=== PATIENT | female | born 1975 | race Caucasian/White ===

== ENCOUNTER 2024-08-05 16:50 | Observation (INO) | payer OTHER, MEDICAID, SELFPAY ==
[2024-08-05] VITALS (27 sets, daily range): BP systolic 155–231; BP diastolic 96–147; PULSE 79–109; RESP 13–27; TEMP 36.3–36.8; O2SAT 92–98; BMI 39.9
--- NOTE | 2024-08-05 | DI.ECHO.S_ITS ---
[facility] : : [address] : : [place] : : [address] : : Phone: [phone] Echocardiogram Report + + :Name: MERA FLORES Study Date: 08/06/2024 Height: 61 in : :[facility] ReadingLocation: Weight: 221 lb : : Gender: Female BSA: 2.0 m2 : :: 1975 Age: 49 yrs BP: 151/82 mmHg: :Reason For Study: NEW HEART FAILURE : :Ordering Physician: CHRISTIAN, : :EDINSON HOWARD Performed By: Rowena Benavidez : :Referring: EDINSON GONZALES MD : + + Interpretation Summary There is mild concentric left ventricular hypertrophy. Left ventricular ejection fraction is estimated to be 35 +/- 5%. There is moderate global hypokinesis of the left ventricle. There is no significant valvular heart disease. Procedure: A two-dimensional transthoracic echocardiogram with color flow and Doppler was performed. The study quality was technically adequate. There is no prior echocardiogram noted for this patient. The patient was in sinus rhythm with heart rates between 83-91 bpm during the exam. Left Ventricle: The left ventricle is normal in size. There is mild concentric left ventricular hypertrophy. Left ventricular ejection fraction is estimated to be 35 +/- 5%. There is moderate global hypokinesis of the left ventricle. Right Ventricle: The right ventricle is borderline dilated. The right ventricular systolic function is normal. Atria: The left atrial size is normal. Right atrial size is normal. There is no Doppler evidence for an interatrial shunt. Mitral Valve: The mitral valve leaflets appear mildly thickened, but open well. The mitral valve mean gradient is 3.0 mmHg. There is trace mitral regurgitation. Aortic Valve: The aortic valve is trileaflet. The aortic valve opens well. There is no aortic valve stenosis. No aortic regurgitation is present. Tricuspid Valve: The tricuspid valve is normal in structure and function. There is mild tricuspid regurgitation. Pulmonary artery pressures cannot be estimated because of the lack of a measurable TR jet velocity. Pulmonic Valve: The pulmonic valve leaflets are thin and pliable; valve motion is normal. There is mild pulmonic regurgitation. Great Vessels: The aortic root is normal size. The dimensions of the ascending aorta are normal. The IVC is of normal diameter and collapses greater than 50% with a sniff. This suggests a low right atrial pressure of 3 mm Hg. Pericardium/ Pleura There is no pericardial effusion. There is no pleural effusion. MMode/2D Measurements & Calculations LVIDd: 5.3 cm LVOT diam: 2.1 cm LVIDs: 4.0 cm Ao root diam: 3.0 cm FS: 25.6 % asc Aorta Diam: 3.3 cm IVSd: 1.4 cm Ao Arch Diam (Prox Trans): 3.0 cm LVPWd: 1.4 cm LV henson. diameter/BSA (cm/m^2): 2.7 LV sys. diameter/BSA (cm/m^2): 2.0 LA A2 area: 17.4 cm2 RA long axis: 5.1 cm LA A4 area: 17.5 cm2 RA area: 14.2 cm2 LA length (vol): 5.4 cm RA vol: 33.6 ml LA vol: 47.4 ml RA : 17.0 ml/m2 LA vol index: 24.1 ml/m2 IVC diam: 1.0 cm RVD1 (basal): 4.2 cm RVD2 (mid): 3.1 cm TAPSE: 1.7 cm Doppler Measurements & Calculations Ao V2 max: 176.8 cm/sec LVOT Max Garcia: 87.0 cm/sec Ao V2 mean: 119.3 cm/sec LV V1 max P.0 mmHg Ao max P.5 mmHg LV V1 VTI: 15.3 cm Ao mean P.5 mmHg NAV(I,D): 2.0 cm2 Ao V2 VTI: 27.9 cm NAV(V,D): 1.8 cm2 sev ratio: 0.55 NAV indexed to BSA (cm^2/m^2): 0.99 MV E max garcia: 81.5 cm/sec PA V2 max: 87.2 cm/sec MV A max garcia: 104.9 cm/sec PA V2 mean: 59.6 cm/sec MV E/A: 0.78 PA mean P.6 mmHg Med Peak E' Garcia: 4.1 cm/sec PA pr(Accel): 39.6 mmHg E/E' med: 19.8 Lat Peak E' Garcia: 4.3 cm/sec E/E' lat: 19.0 E/e' average: 19.4 MV dec time: 0.16 sec MVA(VTI): 1.9 cm2 MV V2 mean: 82.1 cm/sec SV(LVOT): 54.6 ml MV mean P.0 mmHg MV V2 VTI: 28.8 cm Reading Physician:03:29 PM
--- NOTE | 2024-08-05 17:06 | DI.RAD.S_ITS ---
PROCEDURE: XR CHEST 1V INDICATIONS: Shortness of breath TECHNIQUE: One view of the chest was acquired. COMPARISON: None. FINDINGS: Surgical changes and devices: None. Lungs and pleura: Low lung volumes. No dense consolidation or pleural effusion Mediastinum: Moderate cardiomegaly Bones and chest wall: Unremarkable IMPRESSION: Limited single view radiograph without pulmonary parenchymal consolidation or pleural effusion. Moderate cardiomegaly. Dictated by: Jose L Viveros M.D. on 08/05/2024 at 17:29 Approved by: Jose L Viveros M.D. on 08/05/2024 at 17:30
--- NOTE | 2024-08-05 17:28 | EKG_ITS ---
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
[2024-08-05 17:44] LABS: Add Manual Diff / Slide Review NO; Basophils Absolute Auto 200 /uL (0-100); Basophils Percent Auto 1.5 % (0-2); Eosinophils Absolute Auto 200 /uL (0-450); Eosinophils Percent Auto 1.4 % (2-4); Hematocrit 38.3 % (36-46); Hemoglobin 12.4 g/dL (12.0-16.0); Lymphocytes Absolute Auto 2700 /uL (1100-4500); Lymphocytes Percent Auto 22.6 % (25-40); Mean Corpuscular HGB Conc 32.3 % (30-36); Mean Corpuscular Hemoglobin 27.1 PG (26-34); Mean Corpuscular Volume 83.8 fL (80-100); Monocytes Absolute Auto 700 /uL (0-900); Monocytes Percent Auto 5.6 % (3-14); Neutrophils Absolute Auto 8300 /uL (1500-7000); Neutrophils Percent Auto 68.9 % (50-75); Platelet Count 422 X10^3/uL (150-400); Red Blood Cell Count 4.57 X10^6/uL (4.0-5.2); Red Cell Distribution Width 16.7 % (11.6-14.8)
[2024-08-05 17:50] LABS: Prothrombin Time 11.1 SECONDS (9.4-12.5)
[2024-08-05 17:55] LABS: Alanine Aminotransferase 18 IU/L (<35); Albumin 3.8 g/dL (3.5-5.0); Albumin Globulin Ratio 1.2 (1.0-2.8); Alkaline Phosphatase 72 U/L (38-126); Aspartate Aminotransferase 24 IU/L (14-36); BUN Creatinine Ratio 28.6 (6-22); Bilirubin Total 0.4 mg/dL (0.2-1.3); Blood Urea Nitrogen 20 mg/dL (7-17); Calcium 9.2 mg/dL (8.4-10.2); Carbon Dioxide 25 mmol/L (22-32); Chloride 106 mmol/L (98-107); Estimated Glomerular Filt Rate > 60 mL/min (>60); Globulin 3.2 g/dL (1.7-4.1); Glucose 92 mg/dL (70-100); HEMOLYSIS 31 (0-50); Potassium 4.1 mmol/L (3.4-5.1); Sodium 137 mmol/L (137-145)
[2024-08-05] MEDS: ASPIRIN 81 MG CHEW TAB 324 MG PO (17:58)
[2024-08-05] MEDS: NITROGLYCERIN OINT 1 INCH/GM OINT...G. TOP (17:59)
[2024-08-05] MEDS: LABETALOL 20 MG/4 ML SYRINGE IV (18:01)
[2024-08-05 18:06] LABS: NT-proBNP (BNP-Adult 18+) 4550 pg/mL (<125)
--- NOTE | 2024-08-05 18:37 | PC.NURSE ---
Pt reports I'm really hot and has increased work of breathing with some pursued lip breathing. Provider Gigi made aware of patient presentation and vitals prior to and after administration of labetalol and nitro paste. Per darrell Yu verbal order to remove nitro paste and get repeat EKG. Nitro paste removed and EKG being performed at this time.
--- NOTE | 2024-08-05 18:38 | ED_ITS ---
HPI - General Adult General Chief complaint: Shortness of Breath/Dyspnea Stated complaint: hypotensive, other issues Time Seen by Provider: 08/05/24 17:23 Source: patient and other Mode of arrival: Ambulatory History of Present Illness HPI narrative: 49-year-old female felt short of breath this afternoon, denies chest pain, denies headache, denies weakness to face arm or leg. She has history of polysubstance abuse, prior methamphetamine and cocaine use, last use she says about 1 year ago. She does not recall having any diagnosis of heart failure. She does not recall having blood pressure problems. She has not feel like she is having any shaking or sweating or withdrawal from any substance. She denies alcohol use recent. She denies any problems with her heart vessels, no coronary vessel interventions. Denies use of blood thinner medications. No history of blood clots to legs or lungs, no leg pain or swelling symptoms. Related Data Home Medications Medication Instructions Recorded Confirmed No Known Home Medications 08/05/24 08/05/24 Allergies Allergy/AdvReac Type Severity Reaction Status Date / Time Iodinated Contrast Media AdvReac Hives Verified 08/05/24 17:00 Review of Systems Review of Systems Narrative: see HPI Patient History Social History household members: friend(s) Smoking Status: Current every day smoker alcohol intake: never Smoking Status: Current every day smoker tobacco type: vaping Substance Use Type: does not use and former substance user Exam Narrative Exam Narrative: GENERAL: Well-developed patient, in mild distress. HEAD: Atraumatic. Normocephalic. EYES: Pupils equal round and reactive. Extraocular motions intact. No scleral icterus. No injection or drainage. ENT: Nose without bleeding, purulent drainage. Throat without erythema, tonsillar hypertrophy or exudate. Airway patent. NECK: Trachea midline. Non tender CARDIOVASCULAR: Regular rate and rhythm without murmurs, gallops, or rubs. RESPIRATORY: Clear to auscultation. Breath sounds equal bilaterally. No wheezes, rales, or rhonchi. GASTROINTESTINAL: Abdomen soft, non-tender, nondistended. EXTREMITIES: No edema or joint tenderness. BACK: Nontender without deformity or crepitance. No flank tenderness. NEURO: AOx3. Motor functions grossly nonfocal SKIN: No rash or erythema of visible areas Initial Vital Signs Initial Vital Signs: Vital Signs Temperature 97.3 F L 08/05/24 17:00 Pulse Rate 102 H 08/05/24 17:00 Respiratory Rate 20 08/05/24 17:00 Blood Pressure 218/147 H 08/05/24 17:00 Pulse Oximetry 98 08/05/24 17:00 Oxygen Delivery Method Room Air 08/05/24 17:00 Course Orders Ordered: ED Orders 08/05/24 17:06 XR chest 1V Stat EKG-12 Lead Stat RT Consult Eval and Treat NOW 08/05/24 17:30 Complete Blood Count AUTO DIFF Stat Comprehensive Metabolic Panel Stat Lactate (Lactic Acid) Stat NT-proBNP (BNP-Adult 18+) Stat Prothrombin Time INR Stat Troponin I Stat 08/05/24 17:47 Consult to MINING ENGINEER - Engine Repairer Service Stat 08/05/24 18:36 EKG-12 Lead Stat 08/05/24 18:57 CT angio chest abdomen pelvis Stat 08/05/24 20:48 Education, smoking cessation ONGOING Acetaminophen (Acetaminophen 325 Mg Tablet) 650 mg PO Q6H PRN PRN Reason: Fever/Mild Pain (1-3) Enoxaparin Sodium (Enoxaparin 40 Mg/0.4 Ml Syringe) 40 mg SUBCUT DAILY LILIANA Famotidine (Famotidine 20 Mg/2 Ml Vial) 20 mg IV NOW LILIANA Furosemide (Furosemide 40 Mg/4 Ml Vial) 40 mg IV Q8H LILIANA Labetalol HCl (Labetalol 20 Mg/4 Ml Syringe) 10 mg IV Q4HR PRN PRN Reason: Heart Rate- High Lorazepam (Lorazepam 2 Mg/Ml Inj) 1 mg IV Q6HR PRN PRN Reason: Anxiety Naloxone HCl (Naloxone 0.4 Mg/Ml Vial) 0.2 mg IV Q2MIN PRN PRN Reason: Opiate Reversal Ondansetron HCl (Ondansetron 4 Mg/2 Ml Inj) 4 mg IV Q8HR PRN PRN Reason: Nausea And Vomiting Discontinued Medications Aspirin (Aspirin 81 Mg Chew Tab) 324 mg PO NOW ONE Stop: 08/05/24 17:56 Last Admin: 08/05/24 17:58 Dose: 324 mg Documented By: SB Diphenhydramine HCl (Diphenhydramine 50 Mg/Ml Vial) 50 mg IV NOW ONE Stop: 08/05/24 19:17 Last Admin: 08/05/24 19:32 Dose: 50 mg Documented By: AMV Furosemide (Furosemide 40 Mg/4 Ml Vial) 40 mg IV NOW ONE Stop: 08/05/24 18:41 Last Admin: 08/05/24 18:49 Dose: 40 mg Documented By: AMV Labetalol HCl (Labetalol 20 Mg/4 Ml Syringe) 20 mg IV NOW ONE Stop: 08/05/24 17:54 Last Admin: 08/05/24 18:01 Dose: 20 mg Documented By: SB Methylprednisolone (Methylprednisolone 125 Mg/2 Ml Vial) 125 mg IV NOW ONE Stop: 08/05/24 19:17 Last Admin: 08/05/24 19:32 Dose: 125 mg Documented By: AMV Nitroglycerin (Nitroglycerin Oint 1 Inch/Gm Oint...G.) 1 inch TOP NOW ONE Stop: 08/05/24 17:54 Last Admin: 08/05/24 17:59 Dose: 1 inch Documented By: SB Vital Signs Vital signs: Vital Signs - 8 hr 08/05/24 17:00 08/05/24 17:21 08/05/24 17:22 Temperature 97.3 F L Pulse Rate 102 H 104 H 102 H Respiratory Rate 20 19 17 Blood Pressure 218/147 H Pulse Oximetry 98 Oxygen Delivery Method Room Air 08/05/24 17:22 08/05/24 17:30 08/05/24 17:36 Temperature Pulse Rate 109 H 101 H Respiratory Rate 24 23 Blood Pressure 212/122 H Pulse Oximetry 96 Oxygen Delivery Method 08/05/24 17:36 08/05/24 17:46 08/05/24 17:46 Temperature Pulse Rate 100 H Respiratory Rate 27 H Blood Pressure 231/131 H 210/133 H Pulse Oximetry 97 Oxygen Delivery Method 08/05/24 17:59 08/05/24 18:00 08/05/24 18:01 Temperature Pulse Rate 102 H 102 H 103 H Respiratory Rate 25 H Blood Pressure 210/133 H 210/133 H Pulse Oximetry 97 Oxygen Delivery Method 08/05/24 18:09 08/05/24 18:09 08/05/24 18:13 Temperature Pulse Rate 86 Respiratory Rate 16 Blood Pressure 187/106 H 182/110 H Pulse Oximetry 97 Oxygen Delivery Method 08/05/24 18:13 08/05/24 18:15 08/05/24 18:15 Temperature Pulse Rate 80 79 Respiratory Rate 23 13 Blood Pressure 182/104 H Pulse Oximetry 97 97 Oxygen Delivery Method 08/05/24 18:30 08/05/24 18:30 08/05/24 18:30 Temperature 98.2 F Pulse Rate 79 Respiratory Rate 17 Blood Pressure 167/99 H Pulse Oximetry 96 Oxygen Delivery Method 08/05/24 18:32 08/05/24 18:37 08/05/24 18:37 Temperature Pulse Rate 79 80 Respiratory Rate 17 Blood Pressure 167/99 H 176/101 H Pulse Oximetry 96 Oxygen Delivery Method 08/05/24 18:45 08/05/24 18:45 08/05/24 19:00 Temperature Pulse Rate 81 Respiratory Rate 16 Blood Pressure 168/96 H 162/107 H Pulse Oximetry 96 Oxygen Delivery Method Room Air 08/05/24 19:00 08/05/24 19:22 08/05/24 19:22 Temperature Pulse Rate 82 81 Respiratory Rate 21 15 Blood Pressure 171/109 H Pulse Oximetry 96 96 Oxygen Delivery Method 08/05/24 19:30 08/05/24 19:30 08/05/24 19:56 Temperature Pulse Rate 79 85 Respiratory Rate 24 26 H Blood Pressure 181/113 H Pulse Oximetry 94 98 Oxygen Delivery Method Room Air 08/05/24 19:56 08/05/24 20:00 08/05/24 20:00 Temperature Pulse Rate 83 Respiratory Rate Blood Pressure 175/121 H 174/119 H Pulse Oximetry 95 Oxygen Delivery Method 08/05/24 20:13 08/05/24 20:13 08/05/24 20:30 Temperature Pulse Rate 85 81 Respiratory Rate Blood Pressure 163/109 H Pulse Oximetry 97 98 Oxygen Delivery Method 08/05/24 20:30 Temperature Pulse Rate Respiratory Rate 20 Blood Pressure 155/116 H Pulse Oximetry Oxygen Delivery Method Medical Decision Making Lab Data Lab results reviewed: Yes I reviewed the patient's lab results. 08/05/24 17:30 08/05/24 17:30 Labs: Lab Results 08/05/24 Range/Units 17:30 WBC 12.0 H (4.5-11.0) X10^3/uL RBC 4.57 (4.0-5.2) X10^6/uL Hgb 12.4 (12.0-16.0) g/dL Hct 38.3 (36-46) % MCV 83.8 (80-100) fL MCH 27.1 (26-34) PG MCHC 32.3 (30-36) % RDW 16.7 H (11.6-14.8) % Plt Count 422 H (150-400) X10^3/uL Neut % (Auto) 68.9 (50-75) % Lymph % (Auto) 22.6 L (25-40) % [place] % (Auto) 5.6 (3-14) % Eos % (Auto) 1.4 L (2-4) % Baso % (Auto) 1.5 (0-2) % Neut # (Auto) 8300 H (9770-2402) /uL Lymph # (Auto) 2700 (2287-3512) /uL [place] # (Auto) 700 (0-900) /uL Eos # (Auto) 200 (0-450) /uL Baso # (Auto) 200 H (0-100) /uL PT 11.1 (9.4-12.5) SECONDS INR 1.0 (0.9-1.3) Sodium 137 (137-145) mmol/L Potassium 4.1 (3.4-5.1) mmol/L Chloride 106 (98-107) mmol/L Carbon Dioxide 25 (22-32) mmol/L BUN 20 H (7-17) mg/dL Creatinine 0.70 (0.52-1.04) mg/dL Estimated GFR > 60 (>60) mL/min BUN/Creatinine Ratio 28.6 H (6-22) Glucose 92 (70-100) mg/dL Lactate 1.0 (0.7-2.1) mmol/L Calcium 9.2 (8.4-10.2) mg/dL Total Bilirubin 0.4 (0.2-1.3) mg/dL AST 24 (14-36) IU/L ALT 18 (<35) IU/L Alkaline Phosphatase 72 (38-126) U/L Troponin I 0.030 (0.01-0.034) ng/mL NT-Pro-B Natriuret Pep 4550 H (<125) pg/mL Total Protein 7.0 (6.3-8.2) g/dL Albumin 3.8 (3.5-5.0) g/dL Globulin 3.2 (1.7-4.1) g/dL Albumin/Globulin Ratio 1.2 (1.0-2.8) Point of Care Testing Glucose POC 99 Point of care testing: Point of Care Testing Glucose POC 99 Imaging Data Chest x-ray: Radiologist's Impression: [address] [address] XRay Report Signed Patient: Carole Marie MR#: [id number] : 1975 Acct:[id number] Age/Sex: 49 / F Date of Service: 08/05/24 Loc: ED Accession Number: [id number] Procedure: XR chest 1V Ordering Provider: Graciela Mosley MD PROCEDURE: XR CHEST 1V INDICATIONS: Shortness of breath TECHNIQUE: One view of the chest was acquired. COMPARISON: None. FINDINGS: Surgical changes and devices: None. Lungs and pleura: Low lung volumes. No dense consolidation or pleural effusion Mediastinum: Moderate cardiomegaly Bones and chest wall: Unremarkable IMPRESSION: Limited single view radiograph without pulmonary parenchymal consolidation or pleural effusion. Moderate cardiomegaly. Dictated by: Jose L Viveros M.D. on 08/05/2024 at 17:29 Approved by: Jose L Viveros M.D. on 08/05/2024 at 17:30 CT angiogram chest abdomen and pelvis: Radiologist's Impression: [address] [address] [address] Scan Report Signed Patient: Carole Marie MR#: [id number] : 1975 Acct:[id number] Age/Sex: 49 / F Date of Service: 08/05/24 Loc: ED Accession Number: [id number] Procedure: CT angio chest abdomen pelvis Ordering Provider: Kirt Yu MD PROCEDURE: CT ANGIO CHEST ABDOMEN PELVIS INDICATIONS: dissection protocol TECHNIQUE: Precontrast 5 mm thick sections acquired from the lung apices to the iliac crests. After the administration of intravenous contrast, 2.5 mm thick sections again acquired from the lung apices to the iliac crests. Maximum intensity projection (MIP) oblique sagittal and coronal reformats were then acquired. For radiation dose reduction, the following was used: automated exposure control. COMPARISON: None. FINDINGS: Image quality: Diagnostic. AORTA: No aortic aneurysm. No acute aortic syndrome. CHEST: Lower Neck: No enlarged lymph nodes. Thyroid: No thyroid nodules which require sonographic evaluation. Axillae: No enlarged lymph nodes. Chest Wall: Unremarkable. Lungs and Pleura: Small pleural effusions. Smooth interstitial thickening. Bronchial thickening. Heart: Heart size is enlarged. No pericardial effusion. Thoracic Vessels: Pulmonary arteries demonstrate normal size. Mediastinum and Nanci: No enlarged lymph nodes. Esophagus: No wall thickening. Small hiatal hernia. ABDOMEN: Liver: No solid mass. Gallbladder: No radiopaque gallstones or wall thickening. Biliary ducts: No biliary dilation. Pancreas: No ductal dilation. Spleen: Size is within normal limits. Adrenal Glands: No adrenal nodules. Kidneys and Ureters: No hydronephrosis. No solid mass. No complex renal cystic lesion which requires follow up. Stomach and Bowel: Normal colonic caliber, without significant wall thickening. Peritoneum: No abnormal intraperitoneal fluid. No free air. Ventral Wall: Small umbilical hernia containing fat. Abdominal Nodes: No retroperitoneal or mesenteric adenopathy by size criteria. Vessels: Inferior vena cava is normal in size. PELVIS: Pelvic Organs: Unremarkable. Bladder: Unremarkable. Pelvic Nodes: No enlarged lymph nodes. Miscellaneous: No inguinal hernias are seen. Bones: Unremarkable. IMPRESSION: No aortic aneurysm or acute aortic syndrome. Moderate pulmonary edema and small pleural effusions. Dictated by: Sebastian Whitten M.D. on 08/05/2024 at 20:11 Approved by: Sebastian Whitten M.D. on 08/05/2024 at 20:15 ECG Data Attestation: I personally reviewed and interpreted this ECG as follows: Interpretation: 1728, Sinus tachycardia with rate 103, unifocal PVCs noted. No obvious ST segment elevation. T-wave inversion lateral leads. MN 156, QRS 90, QTC 463. 1839, numerous sinus rhythm rate 80, no obvious ST segment elevation changes. T-wave inversions again noted laterally, no ectopy on this particular study. MN 164. QRS 90. QTC 463. MDM Narrative Medical decision making narrative: 49-year-old female with history of polysubstance abuse, including methamphetamine and cocaine, reports last use 1 year ago, has shortness of breath today. And triage had markedly elevated blood pressures and seemed to be in some respiratory distress, was given IV labetalol and nitro paste. Screening EKG without obvious ischemic changes. Labs pending. Chest x-ray pending. Labs show BNP 4500, some cardiomegaly on x-ray. Blood pressure decreased with labetalol and nitro paste. Initial troponin negative, we will repeat interval troponin. CT angiogram chest abdomen and pelvis. Add UDS Patient has history of contrast allergy, she has not sure if it was from MRI or CT scanning, she is willing to proceed with CTA scanning with premedication, IV Solu-Medrol/Benadryl. IV Lasix added. Patient tolerated IV contrast well after premedication, CT angio chest abdomen and pelvis report pending CTA chest abdomen and pelvis shows normal aorta, no mention of pulmonary embolus, fluid overload pulmonary edema changes noted. Consistent with the heart failure. See radiology report. Patient with no oxygen requirement but symptoms of dyspnea, history of polysubstance abuse, no prior echocardiogram located in our system, she does not recall having an echocardiogram study. IV Lasix diuresis initiated, initially hypertensive, blood pressure improving after labetalol and diuretic and topical nitroglycerin. Consider admission, hospitalist to be consulted 2100, case discussed with hospitalist Dr. Nixon, accepts patient for admission to inpatient Critical Care Time Critical Care Time Critical Care Time: Yes Total Critical Care Time: 35 Attestation: The high probability of a clinically significant, sudden or life threatening deterioration of the [cardiopulmonary, vascular] system(s) required my full and direct attention, intervention and personal management. The aggregate critical care time was [35] minutes. This time is in addition to time spent performing reported procedures but includes the following: [x] Data Review and interpretation [x] Patient assessment and monitoring of vital signs [x] Documentation [x] Medication orders and management Discharge Plan Departure Patient Disposition: Admitted As Inpatient Clinical Impression: Shortness of breath, Congestive heart failure, Hx of substance abuse, Hypertension Admit Date/Time: 08/05/24 20:55 Admit Provider: Soto Nixon
--- NOTE | 2024-08-05 18:39 | EKG_ITS ---
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
[2024-08-05] MEDS: FUROSEMIDE 40 MG/4 ML VIAL IV (18:49)
--- NOTE | 2024-08-05 18:57 | DI.CT.S_ITS ---
PROCEDURE: CT ANGIO CHEST ABDOMEN PELVIS INDICATIONS: dissection protocol TECHNIQUE: Precontrast 5 mm thick sections acquired from the lung apices to the iliac crests. After the administration of intravenous contrast, 2.5 mm thick sections again acquired from the lung apices to the iliac crests. Maximum intensity projection (MIP) oblique sagittal and coronal reformats were then acquired. For radiation dose reduction, the following was used: automated exposure control. COMPARISON: None. FINDINGS: Image quality: Diagnostic. AORTA: No aortic aneurysm. No acute aortic syndrome. CHEST: Lower Neck: No enlarged lymph nodes. Thyroid: No thyroid nodules which require sonographic evaluation. Axillae: No enlarged lymph nodes. Chest Wall: Unremarkable. Lungs and Pleura: Small pleural effusions. Smooth interstitial thickening. Bronchial thickening. Heart: Heart size is enlarged. No pericardial effusion. Thoracic Vessels: Pulmonary arteries demonstrate normal size. Mediastinum and Nanci: No enlarged lymph nodes. Esophagus: No wall thickening. Small hiatal hernia. ABDOMEN: Liver: No solid mass. Gallbladder: No radiopaque gallstones or wall thickening. Biliary ducts: No biliary dilation. Pancreas: No ductal dilation. Spleen: Size is within normal limits. Adrenal Glands: No adrenal nodules. Kidneys and Ureters: No hydronephrosis. No solid mass. No complex renal cystic lesion which requires follow up. Stomach and Bowel: Normal colonic caliber, without significant wall thickening. Peritoneum: No abnormal intraperitoneal fluid. No free air. Ventral Wall: Small umbilical hernia containing fat. Abdominal Nodes: No retroperitoneal or mesenteric adenopathy by size criteria. Vessels: Inferior vena cava is normal in size. PELVIS: Pelvic Organs: Unremarkable. Bladder: Unremarkable. Pelvic Nodes: No enlarged lymph nodes. Miscellaneous: No inguinal hernias are seen. Bones: Unremarkable. IMPRESSION: No aortic aneurysm or acute aortic syndrome. Moderate pulmonary edema and small pleural effusions. Dictated by: Sebastian Whitten M.D. on 08/05/2024 at 20:11 Approved by: Sebastian Whitten M.D. on 08/05/2024 at 20:15
[2024-08-05] MEDS: methylPREDNISolone 125 MG/2 ML VIAL IV (19:32)
[2024-08-05] MEDS: diphenhydrAMINE 50 MG/ML VIAL IV (19:32)
--- NOTE | 2024-08-05 21:56 | PC.NURSE ---
This WOODWORKING BENCH CARPENTER is part of patient care team untill 0730 Sunday08/06/2024
--- NOTE | 2024-08-05 22:05 | PC.NURSE ---
This DOCUMENT SCANNER orientating with MICHELLE Pozo is a part of patient care until 7:30 AM
[2024-08-05 23:22] LABS: MRSA (Nasal) PCR NOT DETECTED (Not Detect)
[2024-08-06] VITALS: BP 175/105; PULSE 80; RESP 26; TEMP 37; O2SAT 96
--- NOTE | 2024-08-06 00:21 | PM.HP.1 ---
History of Present Illness History of Present Illness Chief complaint: hypotensive, other issues Narrative: 49 year old female with past medical history of polysubstance abuse including Methamphetamine and cocaine presents with shortness of breath. Per the patient's report, the patient quite abusing all of the illicit drugs about a year ago. However, over the last few days, the patient has noticed progressive shortness of breath. The patient denies any chest pain, fever, chills, coughing, nausea, vomiting or diarrhea. The patient admits to have orthopnea but denies any leg swelling. In our ER, the paitent was noted to have sign of volume overload. CXR shows pulmonary edema and BNP was 4550. Patient LEs has traced pitting edema per our ER physician. The patient SBP was in 190s. The patient was given IV lasix. WBV 12 but no clear sign of infection. The patient othewrise was saturating well on room air. Trops and EKG are negative. PFSH Social History household members: friend(s) Smoking Status: Current every day smoker alcohol intake: never Meds Home Medications and Allergies Home Medications Medication Instructions Recorded Confirmed Type No Known Home Medications 08/05/24 08/05/24 History Allergies Allergy/AdvReac Type Severity Reaction Status Date / Time Iodinated Contrast Media AdvReac Hives Verified 08/05/24 17:00 Review of Systems Review of Systems Narrative: 12 points of ROS are negative except for what was mentioned per HPI. Exam Vital Signs (past 8 hours): - 08/05/24 17:00 08/05/24 17:21 08/05/24 17:22 Temperature 97.3 F L Pulse Rate 102 H 104 H 102 H Respiratory Rate 20 19 17 Blood Pressure 218/147 H Pulse Oximetry 98 Oxygen Delivery Method Room Air Oxygen Flow Rate 08/05/24 17:22 08/05/24 17:30 08/05/24 17:36 Temperature Pulse Rate 109 H 101 H Respiratory Rate 24 23 Blood Pressure 212/122 H Pulse Oximetry 96 Oxygen Delivery Method Oxygen Flow Rate 08/05/24 17:36 08/05/24 17:46 08/05/24 17:46 Temperature Pulse Rate 100 H Respiratory Rate 27 H Blood Pressure 231/131 H 210/133 H Pulse Oximetry 97 Oxygen Delivery Method Oxygen Flow Rate 08/05/24 17:59 08/05/24 18:00 08/05/24 18:01 Temperature Pulse Rate 102 H 102 H 103 H Respiratory Rate 25 H Blood Pressure 210/133 H 210/133 H Pulse Oximetry 97 Oxygen Delivery Method Oxygen Flow Rate 08/05/24 18:09 08/05/24 18:09 08/05/24 18:13 Temperature Pulse Rate 86 Respiratory Rate 16 Blood Pressure 187/106 H 182/110 H Pulse Oximetry 97 Oxygen Delivery Method Oxygen Flow Rate 08/05/24 18:13 08/05/24 18:15 08/05/24 18:15 Temperature Pulse Rate 80 79 Respiratory Rate 23 13 Blood Pressure 182/104 H Pulse Oximetry 97 97 Oxygen Delivery Method Oxygen Flow Rate 08/05/24 18:30 08/05/24 18:30 08/05/24 18:30 Temperature 98.2 F Pulse Rate 79 Respiratory Rate 17 Blood Pressure 167/99 H Pulse Oximetry 96 Oxygen Delivery Method Oxygen Flow Rate 08/05/24 18:32 08/05/24 18:37 08/05/24 18:37 Temperature Pulse Rate 79 80 Respiratory Rate 17 Blood Pressure 167/99 H 176/101 H Pulse Oximetry 96 Oxygen Delivery Method Oxygen Flow Rate 08/05/24 18:45 08/05/24 18:45 08/05/24 19:00 Temperature Pulse Rate 81 Respiratory Rate 16 Blood Pressure 168/96 H 162/107 H Pulse Oximetry 96 Oxygen Delivery Method Room Air Oxygen Flow Rate 08/05/24 19:00 08/05/24 19:22 08/05/24 19:22 Temperature Pulse Rate 82 81 Respiratory Rate 21 15 Blood Pressure 171/109 H Pulse Oximetry 96 96 Oxygen Delivery Method Oxygen Flow Rate 08/05/24 19:30 08/05/24 19:30 08/05/24 19:56 Temperature Pulse Rate 79 85 Respiratory Rate 24 26 H Blood Pressure 181/113 H Pulse Oximetry 94 98 Oxygen Delivery Method Room Air Oxygen Flow Rate 08/05/24 19:56 08/05/24 20:00 08/05/24 20:00 Temperature Pulse Rate 83 Respiratory Rate Blood Pressure 175/121 H 174/119 H Pulse Oximetry 95 Oxygen Delivery Method Oxygen Flow Rate 08/05/24 20:13 08/05/24 20:13 08/05/24 20:30 Temperature Pulse Rate 85 81 Respiratory Rate Blood Pressure 163/109 H Pulse Oximetry 97 98 Oxygen Delivery Method Oxygen Flow Rate 08/05/24 20:30 08/05/24 21:00 08/05/24 21:00 Temperature Pulse Rate 82 Respiratory Rate 20 Blood Pressure 155/116 H 163/108 H Pulse Oximetry 96 Oxygen Delivery Method Oxygen Flow Rate 08/05/24 21:30 08/05/24 21:30 08/05/24 21:34 Temperature Pulse Rate 84 Respiratory Rate Blood Pressure 163/118 H Pulse Oximetry 96 92 Oxygen Delivery Method Nasal Cannula Oxygen Flow Rate 2 08/05/24 21:37 08/05/24 22:07 08/06/24 00:00 Temperature 98.0 F 98.6 F Pulse Rate 87 80 Respiratory Rate 20 26 H Blood Pressure 177/115 H 175/105 H Pulse Oximetry 96 96 Oxygen Delivery Method Room Air Oxygen Flow Rate 0 1 Oxygen Delivery Method Room Air Oxygen Flow Rate 1 Narrative Exam Narrative: GENERAL: The patient is not in any acute distressed. Awake and alert. HEENT: Nonicteric sclerae, PERRLA, EOMI. Oropharynx clear. Moist mucous membranes. Conjunctivae appear well perfused. HEART: Regular rate and rhythm without murmurs. traced lower extremities edema. LUNGS: Clear to auscultation bilaterally. No wheezing, crackles or rhonchi ABDOMEN: Soft, positive bowel sounds, nontender. SKIN: No rash, no excessive bruising, petechiae, or purpura. NEUROLOGIC: AxO x 3. Cranial nerves II-XII intact without motor/sensory deficit. Objective Labs 08/05/24 17:30 08/05/24 17:30 Labs: Laboratory Results - last 24 hr 08/05/24 08/05/24 17:30 22:00 WBC 12.0 H RBC 4.57 Hgb 12.4 Hct 38.3 MCV 83.8 MCH 27.1 MCHC 32.3 RDW 16.7 H Plt Count 422 H Neut % (Auto) 68.9 Lymph % (Auto) 22.6 L [place] % (Auto) 5.6 Eos % (Auto) 1.4 L Baso % (Auto) 1.5 Neut # (Auto) 8300 H Lymph # (Auto) 2700 [place] # (Auto) 700 Eos # (Auto) 200 Baso # (Auto) 200 H PT 11.1 INR 1.0 Sodium 137 Potassium 4.1 Chloride 106 Carbon Dioxide 25 BUN 20 H Creatinine 0.70 Estimated GFR > 60 BUN/Creatinine Ratio 28.6 H Glucose 92 Lactate 1.0 Calcium 9.2 Total Bilirubin 0.4 AST 24 ALT 18 Alkaline Phosphatase 72 Troponin I 0.030 NT-Pro-B Natriuret Pep 4550 H Total Protein 7.0 Albumin 3.8 Globulin 3.2 Albumin/Globulin Ratio 1.2 Nasal Screen MRSA (PCR) Not detected Assessment & Plan Assessment & Plan narrative: Acute new onset heart failure exacerbation. Admit the patient to medical telemetry. Note patient has a history of polysubstance abuse (cocaine and Meth) which likely the cause for her heart failure. Patient denies any alcohol abuse. The patient denies any chest pain and trop/EKG shows no sign of acute ischemia. Continue IV lasix/daily weights and strict I/Os. Monitor renal function and electrolytes with lasix. Echo pending. HTN. SBP was > 190 in ER. Will monitor BP and have prn Labetalol IV for now. Mild Leukocytosis. Afebrile. No clear sign of infeciton. Monitor for now. WBC 12. Could be stressed induced form above. DVT PPx hep SQ Code status full code Disposition home in 2 days Time-Based Coding :: [TOTAL MINUTES] spent with patient and on the chart (including review of chart, obtaining history, exam, reviewing outside data, placing orders, documenting exam and treatment plan, and counseling patient) on [DATE]. Quality VTE Deep Vein Thrombosis/Pulmonary Embolism Present on Admission: No
[2024-08-06] MEDS: FUROSEMIDE 40 MG/4 ML VIAL IV ×2 (00:41→08:21)
[2024-08-06 04:00] VITALS: BP 146/76; PULSE 78; RESP 20; TEMP 36.7; O2SAT 95
[2024-08-06 04:21] LABS: Add Manual Diff / Slide Review NO; Basophils Absolute Auto 100 /uL (0-100); Basophils Percent Auto 0.4 % (0-2); Eosinophils Absolute Auto 0 /uL (0-450); Hematocrit 39.1 % (36-46); Hemoglobin 12.8 g/dL (12.0-16.0); Lymphocytes Absolute Auto 700 /uL (1100-4500); Lymphocytes Percent Auto 5.4 % (25-40); Mean Corpuscular HGB Conc 32.7 % (30-36); Mean Corpuscular Volume 82.6 fL (80-100); Monocytes Absolute Auto 100 /uL (0-900); Monocytes Percent Auto 0.5 % (3-14); Neutrophils Absolute Auto 11900 /uL (1500-7000); Neutrophils Percent Auto 93.7 % (50-75); Platelet Count 406 X10^3/uL (150-400); Red Blood Cell Count 4.73 X10^6/uL (4.0-5.2); Red Cell Distribution Width 16.7 % (11.6-14.8); White Blood Cell Count 12.7 X10^3/uL (4.5-11.0)
[2024-08-06 04:33] LABS: BUN Creatinine Ratio 26.8 (6-22); Blood Urea Nitrogen 19 mg/dL (7-17); Calcium 9.2 mg/dL (8.4-10.2); Carbon Dioxide 23 mmol/L (22-32); Chloride 103 mmol/L (98-107); Estimated Glomerular Filt Rate > 60 mL/min (>60); Glucose 149 mg/dL (70-100); HEMOLYSIS < 15 (0-50); Potassium 3.6 mmol/L (3.4-5.1); Sodium 135 mmol/L (137-145)
[2024-08-06 07:00] VITALS: O2SAT 98
--- NOTE | 2024-08-06 08:19 | P.PN_ITS ---
Subjective Subjective Interval history: From night doctor: 49 year old female with past medical history of polysubstance abuse including Methamphetamine and cocaine presents with shortness of breath. Per the patient's report, the patient quite abusing all of the illicit drugs about a year ago. However, over the last few days, the patient has noticed progressive shortness of breath. The patient denies any chest pain, fever, chills, coughing, nausea, vomiting or diarrhea. The patient admits to have orthopnea but denies any leg swelling. In our ER, the paitent was noted to have sign of volume overload. CXR shows pulmonary edema and BNP was 4550. Patient LEs has traced pitting edema per our ER physician. The patient SBP was in 190s. The patient was given IV lasix. WBV 12 but no clear sign of infection. The patient otherwise was saturating well on room air. Trops and EKG are negative. S: Is feeling much better, off from oxygen. Responded to diuretics well. No history of pulmonary edema. No history of echo. She denies chest pain. Exam Vital Signs (past 8 hours): - 08/06/24 04:00 08/06/24 07:00 Temperature 98.0 F Pulse Rate 78 Respiratory Rate 20 Blood Pressure 146/76 H Pulse Oximetry 95 98 Oxygen Delivery Method Nasal Cannula Oxygen Flow Rate 1 2 Oxygen Delivery Method Nasal Cannula Oxygen Flow Rate 2 Narrative Exam Narrative: NAD, alert and oriented. Fluent speech. Lungs are clear, normal rate and effort. Heart is regular, no murmur gallop or rub. Abdomen is soft, non distended. Extremities are free of edema. Many tattoos. Objective ECG Impression: Possible Left atrial enlargement Minimal voltage criteria for LVH, may be normal variant ( Dontae product ) ST & T wave abnormality, consider lateral ischemia Prolonged QT NO SIGNIFICANT CHANGE FROM PRIOR TRACING Electronically Signed On 08-06-2024 7:58:17 PDT by Pasha Jackson MD Imaging Multiple studies:: Radiologist's impression: Chest x-ray: Limited single view radiograph without pulmonary parenchymal consolidation or pleural effusion. Moderate cardiomegaly. CT of the chest, abdomen, and pelvis: No aortic aneurysm or acute aortic syndrome. Moderate pulmonary edema and small pleural effusions. Labs 08/05/24 17:30 08/05/24 17:30 Labs: Laboratory Results - last 24 hr 08/05/24 08/05/2408/05/24 03:46 17:30 22:00 WBC 12.7 H 12.0 H RBC 4.73 4.57 Hgb 12.8 12.4 Hct 39.1 38.3 MCV 82.6 83.8 MCH 27.0 27.1 MCHC 32.7 32.3 RDW 16.7 H 16.7 H Plt Count 406 H 422 H Neut % (Auto) 93.7 H 68.9 D Lymph % (Auto) 5.4 L 22.6 L [place] % (Auto) 0.5 L 5.6 Eos % (Auto) 0.0 L 1.4 L Baso % (Auto) 0.4 1.5 Neut # (Auto) 23525 H 8300 H Lymph # (Auto) 700 L 2700 [place] # (Auto) 100 700 Eos # (Auto) 0 200 Baso # (Auto) 100 200 H PT 11.1 INR 1.0 Sodium 135 L 137 Potassium 3.6 4.1 Chloride 103 106 Carbon Dioxide 23 25 BUN 19 H 20 H Creatinine 0.71 0.70 Estimated GFR > 60 > 60 BUN/Creatinine Ratio 26.8 H 28.6 H Glucose 149 H 92 Lactate 1.0 Calcium 9.2 9.2 Total Bilirubin 0.4 AST 24 ALT 18 Alkaline Phosphatase 72 Troponin I 0.030 NT-Pro-B Natriuret Pep 4550 H Total Protein 7.0 Albumin 3.8 Globulin 3.2 Albumin/Globulin Ratio 1.2 Nasal Screen MRSA (PCR) Not detected PFSH Social History household members: friend(s) Smoking Status: Current every day smoker alcohol intake: never Assessment & Plan Assessment & Plan narrative: 1. Acute new onset heart failure exacerbation. Present on admission and improved. 2. HTN urgency. Present on admission and improved. Systolic blood pressure Was > 190 in ER. Will monitor BP and have prn Labetalol IV for now. 3. Methamphetamine abuse, present on admission and active. Plan: -continue diuresis, start metoprolol. 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 DVT PPx hep SQ Code status full code Disposition: Possibly home at the end of the day pending results of echo. Time-Based Coding :: [TOTAL MINUTES] spent with patient and on the chart (including review of chart, obtaining history, exam, reviewing outside data, placing orders, documenting exam and treatment plan, and counseling patient) on [DATE]. Quality VTE Deep Vein Thrombosis/Pulmonary Embolism Present on Admission: No MIPS - Admit I confirm the patient?s Advance Care Plan is present, Code status is documented, Surrogate decision maker is in patient?s record [If Yes, STOP here]: Yes MIPS - Meds 'Current medications' to include all prescriptions, [id number] products, herbals, cannabis/cannabidiol products, and vitamin/mineral/dietary (nutritional) supplements. I have utilized all available resources to obtain, update, or review the patient?s current medications. [If Yes, STOP here]: Yes
[2024-08-06] MEDS: ENOXAPARIN 40 MG/0.4 ML SYRINGE SUBCUT (08:21)
[2024-08-06] MEDS: ACETAMINOPHEN 325 MG TABLET 650 MG PO (08:35)
[2024-08-06 08:43] VITALS: BP 154/88; PULSE 85; RESP 19; TEMP 36.4; O2SAT 96
[2024-08-06] MEDS: METOPROLOL ER 25 MG TABLET PO (09:30)
[2024-08-06 09:33] VITALS: O2SAT 100
[2024-08-06 10:00] VITALS: BP 151/99; PULSE 85
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
== END 2024-08-06 17:35 | disposition home or self-care (01) ==
LOC: ED 20:56 → ICU 08-06 09:10 → AC 08-06 10:24
PROVIDERS: Emergency Medicine; Admitting Provider Internal Medicine; Emergency Provider Emergency Medicine; Referring Provider Emergency Medicine; Visit Provider Internal Medicine
DX: I11.0 Hypertensive heart disease with heart failure (principal); I50.21 Acute systolic (congestive) heart failure; I16.0 Hypertensive urgency; F15.11 Other stimulant abuse, in remission; F17.210 Nicotine dependence, cigarettes, uncomplicated
CPT/HCPCS: 36415; 71045; 71275; 74174; 80048; 80053; 83605; 83880; 84484; 85025; 85610; 87797; 93005; 93010; 93306; 96372; 96374; 96375; 99284; 99285; G0378; J1200; J1650; J1940; J2919; Q9967